=== PATIENT | female | born 1955 | race African-American/Black ===

== ENCOUNTER 2017-08-12 13:55 | Observation (INO) ==
[2017-08-12] MEDS ORDERED: ONDANSETRON 4 MG/2 ML VIAL ONE ×3 (14:22→20:06)
[2017-08-12] MEDS ORDERED: HYDROmorphone 2 MG/1 ML VIAL ONE (14:23)
[2017-08-12] MEDS ORDERED: ONDANSETRON 4 MG/2 ML VIAL IV STA (14:33)
[2017-08-12] MEDS ORDERED: HYDROmorphone 2 MG/1 ML VIAL IV STA (14:33)
[2017-08-12] MEDS ORDERED: PROPOFOL 200 MG/20 ML VIAL IV ONE ×2 (14:40→20:06)
[2017-08-12] MEDS ORDERED: MAGNESIUM HYDROXIDE SUSP 30 ML UDCUP PO PRN ×2 (15:44→19:12)
[2017-08-12] MEDS ORDERED: ceFAZolin 2,000 MG in PREMIX 1 EACH IV ONE (15:44)
[2017-08-12 15:49] LABS: Basophils # 0.1 10*3/uL (0.0-0.2); Basophils % 0.6 % (0.0-0.8); Eosinophils # 0.1 10*3/uL (0.0-0.87); Eosinophils % 1.8 % (0.00-10.9); Hematocrit 38.9 VOL% (35.7-47.0); Hemoglobin 12.6 GM/DL (12.0-16.0); Immature Granulocytes % 0.6 %; Immature Granulocytes Absolute 0.05 #; Lymphocytes # 1.2 10*3/uL (1.4-4.0); Lymphocytes % 14.6 % (21.3-54.2); Mean Corpuscular HGB Conc 32.4 GM/DL (32-36); Mean Corpuscular Hemoglobin 31 PG (27-34); Mean Corpuscular Volume 96.5 FL (87-102); Mean Platelet Volume 9.8 FL (9.6-12.0); Monocytes # 0.6 10*3/uL (0.11-0.8); Monocytes % 6.9 % (1.7-12.7); Neutrophils % 75.5 % (38.7-73.9); Platelet Count 220 T/CUMM (130-400); Red Blood Count 4.03 MC/CUMM (3.8-5.5); Red Cell Distribution Width 12.4 % (9.3-17.3); White Blood Count 7.9 T/CUMM (4-12)
[2017-08-12] MEDS ORDERED: CITRIC ACID/SODIUM CITRATE 30 ML UDCUP PO ONE (16:00)
[2017-08-12] MEDS ORDERED: METOCLOPRAMIDE 10 MG/2 ML VIAL IV STA (16:01)
[2017-08-12] MEDS ORDERED: METOCLOPRAMIDE 10 MG/2 ML VIAL ONE (16:08)
[2017-08-12] MEDS ORDERED: ceFAZolin 1,000 MG VIAL ONE ×3 (16:08→17:54)
[2017-08-12] MEDS ORDERED: CITRIC ACID/SODIUM CITRATE 30 ML UDCUP ONE (16:18)
[2017-08-12 16:20] LABS: Alanine Aminotransferase 18 U/L (13-56); Albumin 3.8 G/DL (3.4-5.0); Alkaline Phosphatase 75 U/L (45-117); Aspartate Amino Transferase 15 U/L (0-37); Bilirubin,Total < 0.39 MG/DL (0.2-1.0); Blood Urea Nitrogen 13 MG/DL (7-18); Calcium 8.7 MG/DL (8.5-10.1); Glucose 113 MG/DL (74-106); Potassium 3.9 MMOL/L (3.5-5.1); Sodium 143 MMOL/L (136-145); Total Protein 7.5 G/DL (6.4-8.3)
[2017-08-12] MEDS: LACTATED RINGERS 1,000 ML IV SCH (17:24)
[2017-08-12] MEDS ORDERED: ONDANSETRON 4 MG/2 ML VIAL IV PRN ×2 (19:12→19:38)
[2017-08-12] MEDS ORDERED: PROMETHAZINE 25 MG/1 ML VIAL IM PRN (19:12)
[2017-08-12] MEDS ORDERED: HYDROmorphone 2 MG/1 ML VIAL IV PRN (19:12)
[2017-08-12] MEDS ORDERED: hydrALAZINE 20 MG/1 ML VIAL ONE (19:22)
[2017-08-12] MEDS ORDERED: hydrALAZINE 20 MG/1 ML VIAL IV ONE (19:25)
[2017-08-12] MEDS ORDERED: MEPERIDINE 25 MG/1 ML VIAL ONE ×2 (19:28→19:33)
[2017-08-12] MEDS: MEPERIDINE 25 MG/1 ML VIAL IV PRN ×2 (19:30→19:55)
[2017-08-12] MEDS ORDERED: MORPHINE 10 MG/1 ML VIAL IV PRN (19:38)
[2017-08-12] MEDS ORDERED: SEVOFLURANE 1 UNIT/15 MINUTE INH ONE (20:06)
[2017-08-12] MEDS ORDERED: fentaNYL 100 MCG/2 ML VIAL ONE (20:06)
[2017-08-12] MEDS ORDERED: MIDAZOLAM 2 MG/2 ML VIAL ONE (20:06)
[2017-08-12] MEDS ORDERED: GLYCOPYRROLATE 0.4 MG/2 ML VIAL ONE (20:07)
[2017-08-12] MEDS ORDERED: SUCCINYLCHOLINE 200 MG/10 ML VIAL ONE (20:07)
[2017-08-12] MEDS ORDERED: ROCURONIUM 100 MG/10 ML VIAL IV ONE (20:07)
[2017-08-12] MEDS ORDERED: NEOSTIGMINE 10 MG/10 ML VIAL ONE (20:07)
[2017-08-13] MEDS: LACTATED RINGERS 1,000 ML IV SCH ×2 (01:15→14:12)
[2017-08-13 11:30] VITALS: BP 158/85
== END 2017-08-13 15:01 | disposition home or self-care (01) ==
LOC: EDBD → EDUNIT# → N.ED 13:55 → N.EDINP 13:55 → N.3E 20:40
PROVIDERS: ADMIT Orthopaedic Surgery; ATTEND Orthopaedic Surgery